=== PATIENT | female | born 1950 | race Hispanic/Latino ===

== ENCOUNTER 2019-02-27 07:50 | Emergency (ER) | payer OTHER, MEDICARE, MEDICAID ==
[~2019-02-27] VITALS: Ht 160 cm; Wt 67.0 kg
[2019-02-27] MEDS ORDERED: GLIPIZIDE ER5 MG PO (08:13)
[2019-02-27] MEDS ORDERED: METFORMIN500 MG PO (08:13)
[2019-02-27] MEDS ORDERED: LISINOP/HCTZ1 TA1 PO (08:14)
[2019-02-27] MEDS ORDERED: KENALOG15 GM/TUBE EX (08:14)
[2019-02-27] MEDS ORDERED: DICLOFENAC SODIUM1 % TOP (08:15)
[2019-02-27] MEDS ORDERED: ALPRAZOLAM0.25 MG PO (08:16)
[2019-02-27] MEDS ORDERED: DITROPAN5 MG/TA1 PO (08:16)
[2019-02-27] MEDS ORDERED: MEVACOR10 MG PO (08:16)
[2019-02-27] MEDS ORDERED: VOLTAREN - GENE75 MG PO (08:55)
[2019-02-27 09:25] VITALS: BP 151/75
== END 2019-02-27 09:25 | disposition home or self-care (01) | DRG 605 ==
LOC: ED 07:50
DX: S20.211A Contusion of right front wall of thorax, initial encounter (principal); S00.11XA Contusion of right eyelid and periocular area, initial encounter; M54.5 Low back pain; M25.552 Pain in left hip; M25.551 Pain in right hip; M25.562 Pain in left knee; S09.90XA Unspecified injury of head, initial encounter; I10 Essential (primary) hypertension; E11.9 Type 2 diabetes mellitus without complications; V44.6XXA Car passenger injured in collision with heavy transport vehicle or bus in traffic accident, initial encounter; Z79.84 Long term (current) use of oral hypoglycemic drugs

== ENCOUNTER 2020-09-11 15:37 | Emergency (ER) | payer MEDICARE, MEDICAID ==
[~2020-09-11] VITALS: Ht 160 cm; Wt 60.0 kg
[~2020-09-11 15:37] MED LIST: ALPRAZOLAM0.25 MG PO; DICLOFENAC SODIUM1 % TOP; DITROPAN5 MG/TA1 PO; GLIPIZIDE ER5 MG PO; KENALOG15 GM/TUBE EX; LISINOP/HCTZ1 TA1 PO; METFORMIN500 MG PO; MEVACOR10 MG PO; VOLTAREN - GENE75 MG PO
[2020-09-11 16:17] LABS: HEMOGLOBIN 8.8 g/dl (12.0-16.0); IMMATURE GRANULOCYTES 0.4 % (0.0-5.0); MEAN CELL VOLUME 72.1 fL CALC (80.0-100.0); MEAN CORPUSCULAR HGB 20.5 pG CALC (26.0-32.0); MEAN CORPUSCULAR HGB CONC 28.4 g/dL CAL (32.0-36.0); NEUT# 7.28 thou/uL (2.00-7.15); RED BLOOD COUNT 4.3 mill/uL (4.20-5.60); RED CELL DISTRI WIDTH 17.7 % (11.5-15.5)
[2020-09-11 16:28] LABS: ALBUMIN 4.2 g/dL (3.2-5.0); ALKALINE PHOSPHATASE 52 u/l (38-126); BUN 22 mg/dL (8-23); BUN/CREATININE RATIO 21 (12-20 (CALC)); CARBON DIOXIDE 20 mmol/l (22-30); CHLORIDE 105 mmol/l (95-108); GFR 55 ML/MIN (>=60 (CALC)); GFR FOR AFR.AMER. > 60 ML/MIN (>=60 (CALC)); LIPASE 44 u/l (23-300); MAGNESIUM 1.4 mg/dL (1.6-2.3); SGOT/AST 18 u/l (9-36); SODIUM 135 mmol/l (137-146); TOTAL PROTEIN 7.4 g/dL (6.3-8.2)
[2020-09-11 16:33] LABS: ANION GAP 16 (6-22 (CALC)); BILIRUBIN, TOTAL 0.1 mg/dL (0.0-1.4); POTASSIUM 5.5 mmol/l (3.5-5.1)
[2020-09-11 16:43] LABS: ACT PARTIAL THROMBO TIME 25.2 SECONDS (20.0-32.5); PROTHROMBIN TIME 10.3 SECONDS (9.0-12.5)
[2020-09-11 16:46] VITALS: BP 143/76
[2020-09-11 16:59] LABS: TSH, 3RD GENERATION 0.28 uIU/mL (0.47 - 4.68)
== END 2020-09-11 16:27 | disposition short-term general hospital (02) ==
LOC: ED 15:37
PROVIDERS: Emergency Medicine
DX: R13.10 Dysphagia, unspecified (principal); R26.89 Other abnormalities of gait and mobility; R53.1 Weakness; R47.02 Dysphasia; U07.1 COVID-19; E11.649 Type 2 diabetes mellitus with hypoglycemia without coma; I10 Essential (primary) hypertension; E03.9 Hypothyroidism, unspecified; Z79.84 Long term (current) use of oral hypoglycemic drugs

== ENCOUNTER 2020-09-19 20:43 | Emergency (ER) | payer MEDICARE, MEDICAID ==
[~2020-09-19] VITALS: Ht 160 cm; Wt 61.0 kg
[2020-09-19] MEDS ORDERED: PAXIL40 MG PO (21:41)
[2020-09-19] MEDS ORDERED: LEVOTHYROXIN75 MC1 PO (21:42)
[2020-09-19 21:46] LABS: HEMATOCRIT 30.6 % (37.0-47.0); HEMOGLOBIN 8.9 g/dl (12.0-16.0); IMMATURE GRANULOCYTES 0.7 % (0.0-5.0); MEAN CELL VOLUME 71.2 fL CALC (80.0-100.0); MEAN CORPUSCULAR HGB 20.7 pG CALC (26.0-32.0); MEAN CORPUSCULAR HGB CONC 29.1 g/dL CAL (32.0-36.0); NEUT# 12.35 thou/uL (2.00-7.15); RED BLOOD COUNT 4.3 mill/uL (4.20-5.60); RED CELL DISTRI WIDTH 18.2 % (11.5-15.5)
[2020-09-19 22:02] LABS: ALBUMIN 3.6 g/dL (3.2-5.0); ALKALINE PHOSPHATASE 74 u/l (38-126); AMYLASE 53 u/l (30-110); BUN 14 mg/dL (8-23); BUN/CREATININE RATIO 14 (12-20 (CALC)); CARBON DIOXIDE 24 mmol/l (22-30); CHLORIDE 101 mmol/l (95-108); GFR 55 ML/MIN (>=60 (CALC)); GFR FOR AFR.AMER. > 60 ML/MIN (>=60 (CALC)); LIPASE 21 u/l (23-300); SODIUM 134 mmol/l (137-146); TOTAL PROTEIN 7.2 g/dL (6.3-8.2)
[2020-09-19 22:12] LABS: MYOGLOBIN 37 ng/mL (0 - 62)
[2020-09-19 22:13] LABS: ANION GAP 13 (6-22 (CALC)); BILIRUBIN, TOTAL 0.3 mg/dL (0.0-1.4); POTASSIUM 3.8 mmol/l (3.5-5.1); SGOT/AST 44 u/l (9-36)
[2020-09-19 22:50] LABS: URINE BILIRUBIN - DIPSTICK NEGATIVE (NEGATIVE); URINE BLOOD DIPSTICK NEGATIVE (NEGATIVE); URINE COLOR YELLOW; URINE GLUCOSE - DIPSTICK NEGATIVE (NEGATIVE); URINE KETONE TRACE mg/dL (NEGATIVE); URINE PH 5.5 (4.5-8.0); URINE PROTEIN - DIPSTICK 30 mg/dL (NEG-TRACE); URINE SPECIFIC GRAVITY 1.025; URINE UROBILINOGEN - DIPSTICK 0.2 E.U./dL (0.2)
[2020-09-19 22:58] LABS: URINE LEUK ESTERASE SMALL (NEGATIVE); URINE NITRITE - DIPSTICK NEGATIVE (Negative)
[2020-09-19 23:06] LABS: URINE BACTERIA FEW hpf; URINE MUCUS FEW hpf (NONE-FEW); URINE SQUAMOUS EPITHELIAL CELL FEW EPI/hpf (0-FEW); URINE WBC 50-100 WBC/hpf (0-5)
[2020-09-19] MEDS ORDERED: LOMOTIL2.5 MG PO (23:22)
[2020-09-19] MEDS ORDERED: PHENERGAN25 MG/TAB PO (23:22)
[2020-09-19] MEDS ORDERED: Levaquin PO (23:22)
[2020-09-19 23:40] VITALS: BP 146/58
== END 2020-09-19 23:40 | disposition home or self-care (01) ==
LOC: ED 20:43
PROVIDERS: Family Medicine
DX: U07.1 COVID-19 (principal); J12.82 Pneumonia due to coronavirus disease 2019; E11.649 Type 2 diabetes mellitus with hypoglycemia without coma; N39.0 Urinary tract infection, site not specified; B96.1 Klebsiella pneumoniae [K. pneumoniae] as the cause of diseases classified elsewhere; I10 Essential (primary) hypertension; Z79.84 Long term (current) use of oral hypoglycemic drugs

== ENCOUNTER 2024-04-07 18:02 | Emergency (ER) | payer MEDICARE, MEDICAID ==
[2024-04-07] VITALS (12 sets, daily range): BP systolic 165–213; BP diastolic 62–119
[~2024-04-07] VITALS: Ht 160 cm; Wt 66.2 kg
[~2024-04-07 18:02] MED LIST changes: +ALENDRONATE35 MG PO; +ARICEPT PO; +CELEBREX100 M1 PO; +FERROUS SULFAT325 MG PO; +LEVOTHYROXIN75 MC1 PO; +LISINOPRIL20 M1 PO; +LOMOTIL2.5 MG PO; +Levaquin PO; +PAXIL40 MG PO; +PHENERGAN25 MG/TAB PO; +PROTONIX40 M2 PO; +TRAZODONE100 MG PO
[2024-04-07] MEDS ORDERED: ONDANSETRON HCl 4 MG/2 ML SDV IV ONE (18:10)
[2024-04-07] MEDS ORDERED: Pantoprazole Sodium 40 MG VIAL (Protonix) IV ONE (18:10)
[2024-04-07] MEDS ORDERED: SODIUM CHLORIDE 0.9% 1,000 ML IV ONE ×2 (18:10→19:25)
[2024-04-07] MEDS ORDERED: PROCHLORPERAZINE EDISYLATE 10 MG/2 ML SDV IV ONE ×2 (19:10→21:15)
[2024-04-07 19:11] LABS: BASO% 0.1 % (0-3); HEMATOCRIT 40.8 % (37.0-47.0); HEMOGLOBIN 12.9 g/dl (12.0-16.0); IMMATURE GRANULOCYTES 0.2 % (0.0-5.0); MEAN CELL VOLUME 88.1 fL CALC (80.0-100.0); MEAN CORPUSCULAR HGB 27.9 pG CALC (26.0-32.0); MEAN CORPUSCULAR HGB CONC 31.6 g/dL CAL (32.0-36.0); MONO% 1.6 % (2-13); NEUT# 14.07 thou/uL (2.00-7.15); NEUT% 93.1 % (42-76); RED BLOOD COUNT 4.63 mill/uL (4.20-5.60); RED CELL DISTRI WIDTH 13.3 % (11.5-15.5)
[2024-04-07 19:18] LABS: ALBUMIN 4.7 g/dL (3.2-5.0); CREATININE 1.1 mg/dL (0.5-1.0); POTASSIUM 5.1 mmol/l (3.5-5.1); TOTAL PROTEIN 7.6 g/dL (6.3-8.2)
[2024-04-07 19:20] LABS: AMYLASE 71 u/l (30-110); BILIRUBIN, TOTAL 0.8 mg/dL (0.02-1.3); LIPASE 46 u/l (23-300)
[2024-04-07] MEDS ORDERED: PIPERACILLIN Sodium-Tazobactam 3.375 GM in SODIUM CHLORIDE 0.9% 100 ML IV STA (22:05)
[2024-04-07] MEDS ORDERED: LACTATED RINGER'S 1,000 ML IV STA (22:05)
== END 2024-04-07 22:44 | disposition short-term general hospital (02) ==
LOC: ED 18:02
PROVIDERS: Nurse Practitioner Family
DX: K26.5 Chronic or unspecified duodenal ulcer with perforation (principal); I10 Essential (primary) hypertension; E11.9 Type 2 diabetes mellitus without complications; Z79.84 Long term (current) use of oral hypoglycemic drugs; Z20.822 Contact with and (suspected) exposure to COVID-19
CPT/HCPCS: J0780; J2405; J2470; J2543; Q9967